=== PATIENT | male | born 2000 | race Two or more races ===

== ENCOUNTER 2023-08-20 13:17 | Emergency (ER) | payer OTHER ==
[~2023-08-20] VITALS: Ht 180.3 cm; Wt 78.8 kg
[2023-08-20 15:25] VITALS: BP 157/88; PULSE 78; RESP 16; TEMP 99.5; O2SAT 96
[2023-08-20] MEDS ORDERED: MUPI2OIN2 EX (15:50)
[2023-08-20] MEDS ORDERED: CEPH500C PO (15:50)
[2023-08-20] MEDS: TETANUS-DIPTH-ACEL PERTUSSIS 0.5ML SYR Tdap IM ONE (16:07)
[2023-08-20] MEDS: NEOMYCIN-BACITRACIN-POLYM UNITDOSE PKG TOP OINT TOP ONE (16:07)
== END 2023-08-20 16:02 | disposition home or self-care (01) ==
LOC: ER 13:17
DX: S01.81XA Laceration without foreign body of other part of head, initial encounter (principal); W22.8XXA Striking against or struck by other objects, initial encounter; Y93.89 Activity, other specified; Y92.89 Other specified places as the place of occurrence of the external cause; Y99.0 Civilian activity done for income or pay
CPT/HCPCS: 90471; 90715